=== PATIENT | female | born 1945 ===

== ENCOUNTER 2023-09-04 06:00 | Outpatient (RCR) | payer MEDICARE, OTHER, SELFPAY | END 2023-09-25 23:59 | disposition home or self-care (01) | LOC: TPT 06:00 | PROVIDERS: Visit Provider Student in an Organized Health Care Education/Training Program | DX: Z47.1 Aftercare following joint replacement surgery (principal); Z96.651 Presence of right artificial knee joint | CPT/HCPCS: 97110; 97162 ==

== ENCOUNTER 2023-09-26 06:00 | Outpatient (RCR) | payer MEDICARE, OTHER, SELFPAY | END 2023-10-25 23:59 | disposition home or self-care (01) | LOC: TPT 06:00 | PROVIDERS: Visit Provider Student in an Organized Health Care Education/Training Program | DX: Z47.1 Aftercare following joint replacement surgery (principal); Z96.651 Presence of right artificial knee joint | CPT/HCPCS: 97110; 97140 ==

== ENCOUNTER 2023-10-26 06:00 | Outpatient (RCR) | payer MEDICARE, OTHER, SELFPAY | END 2023-11-25 23:59 | disposition home or self-care (01) | LOC: TPT 06:00 | PROVIDERS: Visit Provider Student in an Organized Health Care Education/Training Program | DX: Z47.1 Aftercare following joint replacement surgery (principal); Z96.651 Presence of right artificial knee joint | CPT/HCPCS: 97110; 97140 ==

== ENCOUNTER 2023-11-26 06:00 | Outpatient (RCR) | payer MEDICARE, OTHER, SELFPAY | END 2023-12-26 23:59 | disposition home or self-care (01) | LOC: TPT 06:00 | PROVIDERS: Visit Provider Student in an Organized Health Care Education/Training Program | DX: Z47.1 Aftercare following joint replacement surgery (principal); Z96.651 Presence of right artificial knee joint | CPT/HCPCS: 97110; 97140 ==

== ENCOUNTER 2023-12-27 06:00 | Outpatient (RCR) | payer MEDICARE, OTHER, SELFPAY | END 2024-01-24 23:59 | disposition home or self-care (01) | LOC: TPT 06:00 | PROVIDERS: Visit Provider Student in an Organized Health Care Education/Training Program | DX: Z47.1 Aftercare following joint replacement surgery (principal); Z96.651 Presence of right artificial knee joint | CPT/HCPCS: 97110; 97140 ==

== ENCOUNTER 2024-09-15 06:00 | Outpatient (RCR) | payer MEDICARE, OTHER, SELFPAY | END 2024-09-25 23:59 | disposition home or self-care (01) | LOC: TPT 06:00 | PROVIDERS: Visit Provider Physician Assistant | DX: Z47.1 Aftercare following joint replacement surgery (principal); Z96.651 Presence of right artificial knee joint | CPT/HCPCS: 97161 ==

== ENCOUNTER 2024-09-26 06:00 | Outpatient (RCR) | payer MEDICARE, OTHER, SELFPAY | END 2024-10-25 23:59 | disposition home or self-care (01) | LOC: TPT 06:00 | PROVIDERS: Visit Provider Physician Assistant | DX: Z47.1 Aftercare following joint replacement surgery (principal); Z96.651 Presence of right artificial knee joint | CPT/HCPCS: 97110 ==

== ENCOUNTER 2024-10-26 06:00 | Outpatient (RCR) | payer MEDICARE, OTHER, SELFPAY | END 2024-11-25 23:59 | disposition home or self-care (01) | LOC: TPT 06:00 | PROVIDERS: Visit Provider Physician Assistant | DX: Z47.1 Aftercare following joint replacement surgery (principal); Z96.651 Presence of right artificial knee joint | CPT/HCPCS: 97110 ==

== ENCOUNTER 2025-02-12 14:54 | Outpatient (CLI) | payer MEDICARE, OTHER, SELFPAY ==
--- NOTE | 2025-02-12 15:05 | CTR_ITS ---
PROCEDURE INFORMATION: Exam: CT Abdomen And Pelvis With Contrast Exam date and time: 02/12/2025 3:14 PM Age: 79 years old Clinical indication: Abdominal pain; Prior surgery; Surgery date: 6+ months; Surgery type: Tubal, partial hyst, gb, stimulator, bladder; Diarrhea x 1 month, HX of lung cancer TECHNIQUE: Imaging protocol: Computed tomography of the abdomen and pelvis with contrast. Radiation optimization: All CT scans at this facility use at least one of these dose optimization techniques: automated exposure control; mA and/or kV adjustment per patient size (includes targeted exams where dose is matched to clinical indication); or iterative reconstruction. Contrast material: OMNI 350; Contrast volume: 100 ml; Contrast route: INTRAVENOUS (IV); COMPARISON: No relevant prior studies available. RADIATION DOSE METRICS: Total DLP (mGy-cm): 481.7 FINDINGS: Tubes, catheters and devices: Stimulator device of the right posterior soft tissues with leads within the spinal canal. Liver: Hepatic steatosis. Gallbladder and biliary ducts: Status post cholecystectomy. Enlarged common bile duct measuring 9 mm. Pancreas: There is an pancreatic uncinate process hypointense, nonenhancing focus measuring 2.5 x 1.6 x 1.5 cm (series 5, image 34). Pancreatic duct is normal in appearance. Spleen: Splenic calcifications. Adrenal glands: Normal. No mass. Kidneys and ureters: Cortical scarring of the left kidney. Bilateral subcentimeter hypodense renal cystic lesions largest of which measures 1.4 cm of the left inferior renal pole measuring 19 Hounsfield units representing simple cyst. Nonobstructing left nephrolith measuring 5 mm. Stomach and bowel: Colonic diverticulosis without diverticulitis. Sigmoid bowel wall thickening. Fluid noted within the large bowel consistent with diarrhea. Appendix: Appendix not visualized. No right lower quadrant inflammatory change. Intraperitoneal space: No free air. No significant fluid collection. Vasculature: Atherosclerotic calcification throughout the visualized abdominal aorta. No abdominal aortic aneurysm. Lymph nodes: No enlarged lymph nodes. Urinary bladder: Unremarkable as visualized. Reproductive: Status post hysterectomy. Bones/joints: Severe disc height loss at L4-L5 and L5-S1 with diffuse lower lumbar spine facet arthropathy. No acute fracture. Soft tissues: Unremarkable. CT/CT abdomen pelvis w con* [id number] IMPRESSION: 1. Mild colonic bowel wall thickening with fluid-filled large bowel which is suggestive of colitis. Consider infectious/inflammatory etiologies. 2. Hypointense region at the pancreatic uncinate process. Recommend MRCP pancreas with contrast for further evaluation. COMMENTS: Consistent with the [employer]'s Incidental Findings Committee white paper (J Am Ronen Radiol 2018): Any incidental renal lesion less than 1 cm or classified as too small to characterize, or any incidental cystic renal lesion characterized as simple-appearing, is likely benign. No follow-up imaging is recommended for these lesions per consensus recommendations based on imaging criteria.
[2025-02-12] MEDS: iohexol 350 mg/mL 500 mL Btl (per mL) IV (15:22)
== END 2025-02-12 14:55 | disposition home or self-care (01) ==
LOC: RAD 14:57
PROVIDERS: PCP Nurse Practitioner Family; Visit Provider Nurse Practitioner Family
DX: R10.9 Unspecified abdominal pain (principal); K63.89 Other specified diseases of intestine; K86.9 Disease of pancreas, unspecified; Z85.118 Personal history of other malignant neoplasm of bronchus and lung; Z98.890 Other specified postprocedural states; Z96.89 Presence of other specified functional implants; K76.0 Fatty (change of) liver, not elsewhere classified; Z90.49 Acquired absence of other specified parts of digestive tract; K83.8 Other specified diseases of biliary tract; D73.89 Other diseases of spleen; R93.422 Abnormal radiologic findings on diagnostic imaging of left kidney; N28.9 Disorder of kidney and ureter, unspecified; N20.0 Calculus of kidney; K57.30 Diverticulosis of large intestine without perforation or abscess without bleeding; R93.89 Abnormal findings on diagnostic imaging of other specified body structures; I70.0 Atherosclerosis of aorta; Z90.710 Acquired absence of both cervix and uterus; M51.369 Other intervertebral disc degeneration, lumbar region without mention of lumbar back pain or lower extremity pain; M51.379 Other intervertebral disc degeneration, lumbosacral region without mention of lumbar back pain or lower extremity pain; M47.896 Other spondylosis, lumbar region
CPT/HCPCS: 74177

== ENCOUNTER → 2025-04-14 11:16 | Outpatient (BNVA) | payer MEDICARE, OTHER, SELFPAY | PROVIDERS: PCP Nurse Practitioner Family; Visit Provider Nurse Practitioner | DX: R39.9 Unspecified symptoms and signs involving the genitourinary system (principal) | CPT/HCPCS: 81000; 87086 ==

== ENCOUNTER → 2025-04-27 17:27 | Outpatient (BNVA) | payer MEDICARE, OTHER, SELFPAY | PROVIDERS: PCP Nurse Practitioner Family | DX: N30.01 Acute cystitis with hematuria (principal); R39.9 Unspecified symptoms and signs involving the genitourinary system | CPT/HCPCS: 81000; 87077; 87086; 87184 ==

== ENCOUNTER → 2025-06-11 14:39 | Outpatient (BNVA) | payer MEDICARE, OTHER, SELFPAY | PROVIDERS: PCP Nurse Practitioner Family; Referring Provider Nurse Practitioner Family; Visit Provider Obstetrics & Gynecology | DX: R30.0 Dysuria (principal); L98.9 Disorder of the skin and subcutaneous tissue, unspecified; Z00.00 Encounter for general adult medical examination without abnormal findings | CPT/HCPCS: 81000; 83036; 85025; 87086 ==